=== PATIENT | male | born 1970 | race Hispanic/Latino ===

== ENCOUNTER 2018-11-06 21:24 | Inpatient (IN) | payer OTHER, SELFPAY ==
[2018-11-06 22:59] LABS: Bilirubin Negative (Negative); Blood, Urine Moderate (Negative); Glucose, Urine (Dipstick) Negative (Negative); Leukocyte Large (Negative); Nitrite Positive (Negative); Protein, Urine (Dipstick) > or equal to 300 mg/dL (Neg-Trace); Urobilinogen 0.2 mg/dL (Less than 2)
[2018-11-06 23:02] LABS: Clarity Turbid (Clear)
[2018-11-06 23:06] LABS: WBC/HPF Greater than 50 HPF (0-3)
[2018-11-06 23:07] LABS: Bacteria/HPF 4+ HPF (None Seen); Squamous Epithelial 0-3 HPF (0-3)
--- NOTE | 2018-11-07 00:09 | CT ---
CT abdomen and pelvis noncontrast HISTORY: Abdominal pain. Fever. COMPARISON: 08/31/2011. FINDINGS: Extensive staghorn calculi involving each kidney and urinary system. Internal coil of the l eft percutaneous nephrostomy catheter appears to be in good position at the inferior pole. There is thickening of the left ureteral wall and stranding in the adjacent fat. Hyperdense material throughou t the ureter has the appearance of extensive stone formation. Right ureteral stent in place with the proximal coil at the proximal to mid ureter. Right percutaneou s nephrostomy catheter coiled is at the inferior pole of the right kidney. It appears to be more peripherally placed than appropriate, although there is no hydronephrosis. Lack of contrast limits evaluation for other abnormalities. Extensive diverticula arise from the colo n without adjacent inflammation. No evidence of bowel obstruction. IMPRESSION: Extensive bilateral staghorn calculi. Stranding around the thickened left ureteral wall s uggests inflammation, possibly related to infection. No evidence of urinary tract obstruction. Bilateral percutaneous nephrostomy catheters in place with right ureteral stent as detailed above. The coil of the right percutaneous nephrostomy catheter is peripheral to the expected location of the renal collecting system, but must be functioning appropriately, as there is no hydronephrosis. Extensive diverticulosis.
[2018-11-07] MEDS ORDERED: cefTRIAXone\\ROCEPHIN 2 GM VIAL ONE (00:31)
[2018-11-07] MEDS ORDERED: Ondansetron PF 4 MG/2 ML Vial ONE (01:00)
[2018-11-07] MEDS ORDERED: Morphine 4 MG/ML VIAL ONE (01:00)
[2018-11-07] MEDS ORDERED: Ondansetron ODT 4 MG TAB SL PRN (03:01)
[2018-11-07] MEDS ORDERED: Ondansetron PF 4 MG/2 ML Vial IVP PRN (03:01)
[2018-11-07] MEDS ORDERED: Sodium Chloride 0.9% 1,000 ML IV SCH ×2 (03:01→04:30)
[2018-11-07] MEDS ORDERED: Morphine 4 MG/ML VIAL SLOW IVP PRN (03:02)
[2018-11-07] MEDS ORDERED: Ketorolac Tromethamine 30 MG/ML VIAL IVP SCH (03:15)
[2018-11-07 03:50] VITALS: BMI 37.0
[2018-11-07] MEDS ORDERED: Acetaminophen 325 MG TAB PO PRN (04:30)
[2018-11-07] MEDS ORDERED: Acetaminophen 650 MG Suppository PR PRN (04:30)
[2018-11-07] MEDS ORDERED: Vancomycin HCl 1 GM in Premix Bag 1 BAG IVPB SCH ×2 (05:15→10:45)
[2018-11-07] MEDS: Sodium Chloride 0.9% 1,000 ML IV SCH ×2 (05:46→16:27)
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
[2018-11-07 05:59] LABS: #Eosinphils 0.3 thou/uL (0.0-0.7); #Lymphocytes 1.2 thou/uL (1.20-3.40); #Monocytes 0.7 thou/uL (0.11-0.59); #Neutrophils 8.2 thou/uL (1.40-6.50); %Basophils 0.1 % (0.0-1.0); %Eosinophils 2.5 % (0.0-10.0); %Lymphocytes 11.5 % (21.0-51.0); %Neutrophils 78.9 % (42.0-75.0); Hemoglobin 10.9 g/dL (14.0-18.0); Mean Corpuscular HGB CONC 31.3 g/dL (32.0-36.0); Mean Corpuscular Volume 83.1 fL (78.0-98.0); Mean Platelet Volume 6.3 fL (7.4-10.4); Platelet Count 286 thou/uL (130-400); RBC Distribution Width 14.2 % (11.5-14.5); Red Blood Cell (RBC) Count 4.18 mill/uL (4.70-6.10); White Blood Cell (WBC) Count 10.4 thou/uL (4.8-10.8)
[2018-11-07 06:04] LABS: INR-International Normal Ratio 1.1; PTT 30.2 SEC (22.9-36.1); Prothrombin Time 14.4 SEC (12.0-14.7)
[2018-11-07 06:21] LABS: ALT (SGPT) 7 U/L (8-55); AST (SGOT) 17 U/L (5-34); Albumin 3.3 g/dL (3.5-5.0); Alkaline Phosphatase 69 U/L (40-150); Anion Gap 9 mmol/L (10-20); BUN (Urea Nitrogen) 21 mg/dL (8.9-20.6); Bilirubin, Total 0.2 mg/dL (0.2-1.2); Calc. Creatinine Clearance 112 mL/min (70-130); Calcium 8.9 mg/dL (7.8-10.44); Carbon Dioxide 24 mmol/L (22-29); Chloride 103 mmol/L (98-107); Estimated GFR-MDRD 60; Globulin 3.3 g/dL (2.4-3.5); Glucose 115 mg/dL (70-105); Potassium 4.3 mmol/L (3.5-5.1); Protein, Total 6.6 g/dL (6.0-8.3); Sodium 132 mmol/L (136-145)
[2018-11-07] MEDS: Piperacillin/Tazobactam 3.375 GM in Sodium Chloride 0.9% 100 ML IVPB SCH ×3 (06:26→18:23)
[2018-11-07] MEDS: Lisinopril 10 MG TAB PO SCH (08:52)
[2018-11-07] MEDS: Famotidine/PF 20 mg/2ml Vial SLOW IVP SCH ×2 (08:52→19:56)
--- NOTE | 2018-11-07 08:53 | RAD ---
CHEST ONE VIEW: HISTORY: Cough. COMPARISON: 11/06/2018 FINDINGS: Heart size is normal. Lungs are clear. IMPRESSION: No significant acute intrathoracic disease. Stable examination. POS: [facility]
[2018-11-07] MEDS ORDERED: HYDROcodone/Acetaminophen 5/325 mg Tablet PO PRN (09:26)
[2018-11-07] MEDS ORDERED: Morphine 2 MG/ML SYRINGE SLOW IVP PRN (09:27)
[2018-11-07] MEDS: HYDROcodone/Acetaminophen 10/325 mg Tablet PO PRN ×4 (10:08→22:32)
--- NOTE | 2018-11-07 10:30 | PDOC.HOSPP ---
- Subjective Encounter Date: 11/07/18 Encounter Time: 08:45 Subjective: Pain left flank 7/10, minimal relief with medication. No nausea; rash LLE unchanged, nonpruritic - Objective Vital Signs & Weight: Vital Signs (12 hours) Temp Pulse Resp BP Pulse Ox 11/07/18 08:12 97.7 F 52 L 18 119/82 99 11/07/18 04:47 98.1 F 72 18 148/99 H 97 11/07/18 03:15 97 11/07/18 02:41 97.6 F 82 16 132/83 99 Weight Weight 244 lb I&O: 11/06/18 11/07/18 11/08/18 06:59 06:59 06:59 Intake Total 265 Output Total 125 Balance 140 Result Diagrams: 11/07/18 05:50 11/07/18 05:50 Hospitalist ROS - Medication Medications: Active Medications Generic Name Dose Route Start Last Admin Trade Name Freq PRN Reason Stop Dose Admin Hydrocodone Bitart/Acetaminophen 1 tab 11/07/18 09:26 11/07/18 10:08 Pearcy 10/325 PO 1 tab Q4H PRN Administration severe pain 8-10 Famotidine 20 mg 11/07/18 09:00 11/07/18 08:52 Pepcid SLOW IVP 20 mg Q12HR OWEN Administration Sodium Chloride 1,000 mls @ 100 mls/hr 11/07/18 05:10 11/07/18 05:46 Normal Saline 0.9% IV Not Given .Q10H OWEN Piperacillin Sod/Tazobactam 100 mls @ 200 mls/hr 11/07/18 06:00 11/07/18 06: 26 Sod 3.375 gm/ Sodium Chloride IVPB 100 mls Q6HR OWEN Administration Lisinopril 10 mg 11/07/18 09:00 11/07/18 08:52 Zestril PO Not Given DAILY OWEN - Exam General - other findings: Up ambulating in room, moderately uncomfortable Eye: PERRL ENT: no oropharyngeal lesions Neck: no lymphadenopathy Heart: RRR Respiratory: CTAB Gastrointestinal: soft, non-tender, non-distended Extremities: no edema Skin - other findings: BLE purpuric rash Neurological: CN's grossly intact, no new deficit Psychiatric: normal behavior, A&O x 3 Hosp A/P (1) Nephrostomy complication Code(s): N99.528 - OTHER COMP OF INCONTINENT EXTERNAL STOMA OF URINARY TRACT Status: Acute (2) Urinary catheter infection Code(s): T83.518A - I/I REACT D/T OTHER URINARY CATHETER, INITIAL ENCOUNTER Status: Acute (3) Nephrolithiasis Status: Acute (4) Rash Code(s): R21 - RASH AND OTHER NONSPECIFIC SKIN ERUPTION Status: Acute (5) Chronic kidney disease, stage III (moderate) Code(s): N18.3 - CHRONIC KIDNEY DISEASE, STAGE 3 (MODERATE) Status: Acute (6) Hypertension Code(s): I10 - ESSENTIAL (PRIMARY) HYPERTENSION Status: Acute - Plan continue antibiotics ID - follow up urine culture; adjust abx. CXR negative. - Urology consult requested; unsure of intermediate project manager plan regarding nephrostomy tubes; patient also unsure. Skin - ?leukocytoclastic vasculitis? Mixed cryoglobulinemia? In ideal world, consider skin biopsy/outpt derm evaluation if persists. Check hepatitis panel. Renal - lab reviewed
[2018-11-07] MEDS ORDERED: Vancomycin HCl 1.5 GM in Sodium Chloride 0.9% 250 ML 300 ML IVPB SCH (10:45)
--- NOTE | 2018-11-07 13:54 | RAD ---
Abdomen one view: HISTORY: Kidney stones COMPARISON: Abdomen and pelvic CT scan 11/06/2018 FINDINGS: Right-sided ureteral stent with heavy concretions around the stent at the level the renal pelvis and bladder and also along the stent. Left percutaneous nephrostomy catheter with several left renal calculi. Right-sided percutaneous nephrostomy catheter which appears to be laterally peripheral to the right k idney. IMPRESSION: Somewhat peripheral laterally located right-sided percutaneous nephrostomy catheter. Right-sided ureteral stent with heavy concretions. Left-sided percutaneous nephrostomy catheter with several left renal calculi and probably large dista l left ureteral calculi.
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
[2018-11-07] MEDS: Vancomycin HCl 1.5 GM in Sodium Chloride 0.9% 250 ML 300 ML IVPB SCH (22:04)
[2018-11-07] MEDS ORDERED: Melatonin 3 MG TAB PO PRN (22:19)
[2018-11-08] MEDS: Piperacillin/Tazobactam 3.375 GM in Sodium Chloride 0.9% 100 ML IVPB SCH ×5 (01:13→17:00)
[2018-11-08] MEDS: Sodium Chloride 0.9% 1,000 ML IV SCH ×2 (05:47→11:06)
[2018-11-08 06:04] LABS: #Eosinphils 0.4 thou/uL (0.0-0.7); #Lymphocytes 1.3 thou/uL (1.20-3.40); #Monocytes 0.5 thou/uL (0.11-0.59); #Neutrophils 5.2 thou/uL (1.40-6.50); %Basophils 0.4 % (0.0-1.0); %Eosinophils 5.4 % (0.0-10.0); %Lymphocytes 17.2 % (21.0-51.0); %Neutrophils 70.1 % (42.0-75.0); Hemoglobin 11.1 g/dL (14.0-18.0); Mean Corpuscular HGB CONC 32.5 g/dL (32.0-36.0); Mean Corpuscular Hemoglobin 27.3 pg (27.0-31.0); Mean Corpuscular Volume 84.1 fL (78.0-98.0); Mean Platelet Volume 6.8 fL (7.4-10.4); Platelet Count 273 thou/uL (130-400); RBC Distribution Width 14.2 % (11.5-14.5); Red Blood Cell (RBC) Count 4.08 mill/uL (4.70-6.10); White Blood Cell (WBC) Count 7.4 thou/uL (4.8-10.8)
[2018-11-08 06:28] LABS: Anion Gap 12 mmol/L (10-20); BUN (Urea Nitrogen) 21 mg/dL (8.9-20.6); Calc. Creatinine Clearance 107 mL/min (70-130); Calcium 8.9 mg/dL (7.8-10.44); Carbon Dioxide 25 mmol/L (22-29); Chloride 103 mmol/L (98-107); Estimated GFR-MDRD 57; Glucose 96 mg/dL (70-105); Potassium 4.5 mmol/L (3.5-5.1); Sodium 135 mmol/L (136-145)
[2018-11-08] MEDS: HYDROcodone/Acetaminophen 10/325 mg Tablet PO PRN ×3 (06:33→17:00)
[2018-11-08 06:47] LABS: HBCM Index 0.08 S/CO (0-0.79); HBSAg Index 0.21 S/CO (0-0.99); Hep A IgM AB Non-Reactive (NonReactive); Hep A IgM S/CO 0.11 S/CO (0-0.79); Hep B Surf Ag Non-Reactive S/CO (NonReactive); Hep C IgG Ab Non-Reactive (NonReactive); Hep C Index 0.16 S/CO (0-0.79); Hepatitis B Core IgM Abs Non-Reactive (NonReactive)
[2018-11-08] MEDS: Famotidine/PF 20 mg/2ml Vial SLOW IVP SCH (08:22)
[2018-11-08] MEDS: Lisinopril 10 MG TAB PO SCH (08:22)
[2018-11-08] MEDS: Vancomycin HCl 1.5 GM in Sodium Chloride 0.9% 250 ML 300 ML IVPB SCH (10:57)
--- NOTE | 2018-11-08 13:46 | PRG ---
DATE OF SERVICE: 11/08/2018 This patient has been afebrile with stable vital signs overnight. I reviewed his KUB, which was done yesterday. It shows a stent that has significant calcification in distal end in the bladder and that is a ureteral stent. It shows the nephrostomy tubes in their position as of CT scan. I reviewed this KUB with CT scan with Dr. Ryan. He was concerned that the nephrostomy tube on the right may not be in the collecting system. However, it has drained 200 mL of urine last night and the left side drained 300 mL, so these are in communication with the collecting system. I am still thinking that this right-sided nephrostomy is probably placed in this position because that is the only place that the collecting system could be accessed because of the size of his stones. I did also find some information on him from his chart review over at [facility]. He was seen between April 2013 and December 2015, multiple times at the [facility] where he had more than one shockwave and ureteroscopy. He also was admitted for pyelonephritis, also admitted in December 2015 for a large right subcapsular hematoma. At that point on the CAT scan, he had only one small right renal stone and no left ureteral stones. It looks like he probably was transfused at that time. I have found no other intervention on him. I talked with the patient again about the seriousness of the amount of stone burden that he has. We also discussed the fact that he probably is forming uric acid stones, although the KUB does show some of them to have faint calcification on them, but the large ones are not visible, so I think to make sense that it is uric acid stones and we could get back on allopurinol, which he was on in the past and if he is compliant, he could also look at starting 15 mEq of potassium citrate b.i.d. with food as this can help to prevent further uric acid stones from growing and even potentially could dissolve existing ones, although with his stone burden, I doubt whether this would be of much value. I did discuss with him that the procedures for this will be multiple and that it needs to be done at a center where they are very comfortable doing this with doctors that have approached these issues before in terms of large bilateral staghorn. He has been seen at 2 different hospitals in [place], and that is where these nephrostomy tubes were placed and presumably the stent and I have encouraged him to return there to get treatment at one of the major medical centers in [place] regarding this. He has been seen at [facility] more recently and that was in June and hopefully he can get back and see them and get these treated. We discussed the fact that although his kidney function is normal now, it will only worsen with the burden of the stones. This was also discussed with the hospitalist. Job ID: [id number]
[2018-11-08 19:23] VITALS: BP 129/82; TEMP 98.4
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
== END 2018-11-08 20:05 | disposition home or self-care (01) | DRG 694 ==
LOC: ERS 21:24 → T4-B 23:49
PROVIDERS: ADMIT Hospitalist; ATTEND Hospitalist
DX: N20.0 Calculus of kidney (principal); M10.9 Gout, unspecified; M19.90 Unspecified osteoarthritis, unspecified site; I12.9 Hypertensive chronic kidney disease with stage 1 through stage 4 chronic kidney disease, or unspecified chronic kidney disease; R21 Rash and other nonspecific skin eruption; N18.3 Chronic kidney disease, stage 3 (moderate); R05 Cough; Z93.6 Other artificial openings of urinary tract status; Z90.49 Acquired absence of other specified parts of digestive tract; Z90.81 Acquired absence of spleen
CPT/HCPCS: 36415; 71045; 74018; 74176; 80048; 80053; 80074; 81003; 81015; 85025; 85610; 85730; 94640; 96365; 96375; J0696; J1885; J2270; J2405; J2543; J3370; J3490; J7050; J7620; S0028